=== PATIENT | male | born 1985 | race Caucasian/White ===

== ENCOUNTER 2021-04-24 10:13 | Emergency (ER) | payer OTHER ==
[~2021-04-24] VITALS: Ht 172.7 cm; Wt 113.4 kg
[2021-04-24] MEDS ORDERED: LISINOPRIL10 MG PO (10:21)
[2021-04-24 13:34] LABS: ABSOLUTE LYMPHOCYTES 1.8 thou/uL (0.8-5.3); ABSOLUTE MONOCYTES 0.5 thou/uL (0.0-1.2); ABSOLUTE NEUTROPHILS 3.3 thou/uL (1.6-8.1); BASOPHILS 0.7 %; EOSINOPHILS 0.8 %; HEMATOCRIT 46.8 % (42.0-52.0); HEMOGLOBIN 16.1 gm/dL (14.0-18.0); LYMPHOCYTES 32.5 %; MCHC 34.5 g/dL (28.0-37.0); MCV 83.8 fL (80.0-100.0); MONOCYTES 8.8 %; MPV 7.3 fl. (7.2-11.1); NUCLEATED RBCS 0 /100WBC; PLATELET COUNT* 254 thou/uL (150-400); POLYS 57.2 %; RBC 5.58 mil/uL (4.50-6.00); WBC 5.7 thou/uL (4.0-11.0)
[2021-04-24 13:39] LABS: CALCIUM 8.7 mg/dL (8.5-10.1); CREATININE 1.2 mg/dL (0.6-1.3); POTASSIUM 4.4 mmol/L (3.5-5.1)
[2021-04-24 13:43] LABS: ALBUMIN 3.8 g/dL (3.4-5.0); TOTAL BILIRUBIN 0.5 mg/dL (<0.1-1.0); TOTAL PROTEIN 7.4 g/dL (6.4-8.2)
[2021-04-24] MEDS ORDERED: CARAFATE 1 GM TA1 G1 PO (15:05)
[2021-04-24] MEDS ORDERED: OMEPRAZOLE 20 M20 M1 PO (15:05)
[2021-04-24] MEDS ORDERED: VISTARIL 25 MG25 M1 PO (15:05)
[2021-04-24] MEDS ORDERED: APAP W/CODEINE1 TA2 PO (15:08)
[2021-04-24 15:33] VITALS: BP 165/87
--- NOTE | 2021-04-25 11:12 | EKG ---
[place] [address] ELECTROCARDIOGRAM REPORT Name: RUFUS RUDOLPH Room: [facility]#: [id number] Admission: 04/24/21 Attend Phys: Discharge: 04/24/21 Date of : 85 Date of Service: 04/24/21 [facility] Report #: [id number] THIS REPORT FOR: //name// [facility] ED Test Date: 2021-04-24 Test Time: 10:24:19 Pat Name: RUFUS RUDOLPH Department: Room: Gender: Rn Telephone Triage: : 1985 Requested By: Rocael Lew Order Number: [id number] MD: Baudilio Pagan Measurements Intervals [place] Rate: 111 P: 52 PA: 138 QRS: -51 QRSD: 86 T: 27 QT: 314 QTc: 427 Interpretive Statements Sinus tachycardia LAD, consider left anterior fascicular block Consider anterior infarct No previous ECG available for comparison Electronically Signed On 04-25-2021 11:12:15 [employer] MAN by Baudilio Pagan [email or web address] <ELECTRONICALLY SIGNED> By: Baudilio Pagan MD, [facility] 04/25/21 1112 1024 1024 Baudilio Pagan MD, [facility] /EPI
== END 2021-04-24 15:35 | disposition home or self-care (01) ==
LOC: M.ERS 10:13
PROVIDERS: Physician Assistant
DX: R10.13 Epigastric pain (principal); I10 Essential (primary) hypertension; Z79.899 Other long term (current) drug therapy